=== PATIENT | male | born 2000 | race Two or more races ===

== ENCOUNTER 2025-03-26 12:46 | Inpatient (IN) | payer MEDICARE, MEDICAID ==
[~2025-03-26] VITALS: Ht 170.2 cm; Wt 93.9 kg
--- NOTE | 2025-03-26 13:01 | ED.PDOC ---
History of Present Illness HPI Comments This is a 24 year old male CATALINOA presenting to the ED with chief complaint of generalized weakness. EMS reports that the patient had an argument with his family at home, leaving his house and calling 911 for assistance. Patient relays that he was found to be generally weak, but this could also be due to his h istory of cerebral palsy. Patient states that he wants social services specialist for assistance as he claims no one at home takes care of him. Patient denies any N/V/D, abdominal pain, chest pain, SOB, fever, or chills. Time Seen by MD: 12:59 Primary Care Provider: SOREN Reviewed Notes: Nurses Notes, Flarer Notes, Medications, Allergies Allergies: Coded Allergies: NO KNOWN ALLERGIES (Unverified , 05/29/12) Information Source: Patient, Emergency Med Personnel Mode of Arrival: EMS Severity: Mild Timing: Hours Duration: Since onset Prehospital treatment: None Past Medical History PAST MEDICAL HISTORY: Seizures Past Medical History (Other): Cerebral palsy, autoimmune disorder Surgical History: Denies all surgeries Family History Family History: Reviewed,noncontributory to illness, Unknown Social History Smoker: Non-Smoker Alcohol: Denies ETOH Use Drugs: Denies Drug Use Lives In: Home Constitutional: reports: weakness; denies: chills, diaphoresis, fatigue, fever, malaise, sweats, others EENTM: denies: blurred vision, double vision, ear bleeding, ear discharge, ear drainage, ear pain, ear ringing, eye pain, eye redness, hearing loss, mouth pain, mouth swelling, nasal discharge, nose bleeding, nose congestion, nose pain, photophobia, tearing, throat pain, throat swelling, voice changes, others Respiratory: denies: cough, hemoptysis, orthopnea, SOB at rest, shortness of breath, SOB with excertion, stridor, wheezing, others Cardiovascular: denies: chest pain, dizzy spells, diaphoresis, Dyspnea on exertion, edema, irregular heart beat, left arm pain, lightheadedness, palpitations, PND, syncope, others Gastrointestinal: denies: abdomen distended, abdominal pain, blood streaked bowels, constipated, diarrhea, dysphagia, difficulty swallowing, hematemesis, melena, nausea, poor appetite, poor fluid intake, rectal bleeding, rectal pain, vomiting, others Genitourinary: denies: burning, dysuria, flank pain, frequency, hematuria, incontinence, penile discharge, penile sore, pain, testicle pain, testicle swelling, urgency, others Neurological: denies: dizziness, fainting, headache, left sided numbness, left sided weakness, numbness, paresthesia, pre-existing deficit, right sided numbnes s, right sided weakness, seizure, speech problems, tingling, tremors, weakness, others Musculoskeletal: denies: back pain, gout, joint pain, joint swelling, muscle pain, muscle stiffness, neck pain, others Integumetry: denies: bruises, change in color, change in hair/nails, dryness, laceration, lesions, lumps, rash, wounds, others Allergic/Immunocompromised: denies: Difficulty Healing, Frequent Infections, Hives, Itching, others Hematologic/Lymphatic: denies: anemia, blood clots, easy bleeding, easy bruising, swollen glands, others Endocrine: denies: excessive hunger, excessive sweating, excessive thirst, excessive urination, flushing, intolerance to cold, intolerance to heat, unexplained weight gain, unexplained weight loss, others Psychiatric: denies: anxiety, bipolar disorder, depression, hopeless, panic disorder, schizophrenia, sleepless, suicidal, others All Other Systems: Reviewed and Negative Physical Exam General Appearance: Moderate Distress, Normal HEENT: Normal ENT Inspection, Pharynx Normal, TMs Normal Neck: Full Range of Motion, Non-Tender, Normal, Normal Inspection Respiratory: Chest Non-Tender, Lungs Clear, No Accessory Muscle Use, No Respiratory Distress, Normal Breath Sounds Cardiovascular: No Edema, No JVD, No Murmur, No Gallop, Normal Peripheral Pulses, Regular Rate/Rhythm Breast Exam: Deferred Gastrointestinal: No Organomegaly, Non Tender, No Pulsatile Mass, Normal Bowel Sounds, Soft Genitalia: Deferred Pelvic: Deferred Rectal: Deferred Extremities: No calf tenderness, Normal capillary refill, Normal inspection, Normal range of motion, Non-tender, No pedal edema Musculoskeletal : Apperance: Normal Neurologic: Alert, rails developer II-XII nml as Tested, No Motor Deficits, Normal Affect, Normal Mood, No Sensory Deficits Cerebellar Function: NOT DONE Reflexes: NOT DONE Skin: Dry, Normal Color, Warm Peripheral Pulses: 3+ Radial (R), 3+ Radial (L) Lymphatic: No Adenopathy Was a procedure done? Was a procedure done?: No Differential Dx Considerations may include: Anemia Electrolyte imbalance X-Ray, Labs, Meds, VS Patient alert. Came in because of generalized symptoms. No obvious injury. Vitals stable. History of cerebral palsy. His lower extremity not well developed. He does ambulate with the assistance. Establish intravenous access. Was given fluids. Explained to the patient. Continue monitoring. Time of 1ST Reevaluation: 13:58 Reevaluation 1ST: Unchanged Patient Education/Counseling: Diagnosis, Treatment Family Education/Counseling: No Family Present SEPSIS Sepsis Screen Physician Orders Complete Blood Count (03/26/25 13:10) Urinalysis (03/26/25 13:10) Basic Metabolic Panel (03/26/25 13:10) Sodium Chloride 0.9% (03/26/25 13:15) Sodium Chloride 0.9% (03/26/25 13:15) Departure 1 Departure Time of Disposition: 13:28 Impression: Primary Impression: Personality disorder Additional Impression: General weakness Disposition: ADMITTED INPATIENT Admit to: Med Surg Condition: Guarded Critical Care Note Critical Care Time?: No Stability Stability form required: No Heart Score Heart Score: Heart Score Response (Comments) Value History N/A 0 EKG N/A 0 Age N/A 0 Risk Factors N/A 0 Troponin N/A 0 Total 0 I personally scribed for JUANJOSE KEANE MD ([email or web address]) on 03/26/25 at 13:00. Electronically submitted by Ish Henson ([email or web address]). JUANJOSE KEANE MD Mar 26, 2025 13:00
[2025-03-26 13:52] LABS: Anion Gap 14 (5-15); Carbon Dioxide 24 mmol/L (20-31); Chloride 102 mmol/L (98-107); Potassium 3.6 mmol/L (3.5-5.1); Sodium 140 mmol/L (136-145)
[2025-03-26 13:53] LABS: Calcium 9.3 mg/dL (8.7-10.4)
[2025-03-26 13:58] LABS: BUN/Creatinine Ratio 25.6 (10.0-20.0); Blood Urea Nitrogen 20 mg/dL (9-23); Glucose 91 mg/dL (74-106); Hematocrit 50.7 % (41.0-53.0); Hemoglobin 17.3 g/dL (13.5-17.5); Mean Corpuscular Hemoglobin 27.4 pg (28.0-32.0); Mean Corpuscular Volume 80.6 fL (80.0-100.0); Nucleated Red Blood Cells % 0.0 %
[2025-03-26] MEDS: SODIUM CHLORIDE 0.9% 1,000 ML IV ONE ×2 (15:08→15:09)
[2025-03-26] MEDS ORDERED: ONDANSETRON HCL 4 MG/2 ML VIAL IV PRN (21:15)
--- NOTE | 2025-03-26 21:47 | DVH ---
EXAM: CT HEAD WITHOUT CONTRAST INDICATION: Generalized weakness TECHNIQUE: CT of the head without intravenous contrast. Radiation Dose : 1. Head: CT Dose: CTDI volume is 66.93 mGy. Dose-length product is 1318.59 mGy*cm The dose indicators for CT are the volume Computed Tomography (CT) Dose Index (CTDIvol) and the Dose Length Product (DLP), and are measured in units of mGy and mGy-cm, respectively. These indicators are not patient dose, but values generated from the CT scanner acquisition factors. The report includes radiation exposure data for exposures received during this examination. COMPARISON: None FINDINGS: The cerebral parenchyma appears to be normal configuration and attenuation. The ventricles, cisterns , and sulci appear age-appropriate. There is no evidence for acute territorial infarct, hemorrhage, or mass effect. The orbits are normal. Polyp versus retention cyst within the right maxillary antrum. The visualized paranasal sinuses and mastoid air cells are otherwise clear. The soft tissues and osseous structure s appear within normal limits. IMPRESSION: 1. No acute territorial infarct, intracranial hemorrhage, or mass effect. If clinical symptoms persis t, MRI may be beneficial in further evaluation. Radiation optimization: All CT scans at this facility use at least one of these dose optimization colten hniques: automated exposure control mA and/or kV adjustment per patient size (includes targeted exam s where dose is matched to clinical indication) or iterative reconstruction.
[2025-03-26] MEDS ORDERED: NITROGLYCERIN 0.4 MG SL TAB SL PRN (22:30)
[2025-03-26] MEDS ORDERED: MORPHINE SULFATE INJ 2 MG/ml SYRG IV PRN (22:30)
--- NOTE | 2025-03-26 22:31 | DVHHP2 ---
History of Present Illness Reason for Visit: Generalized weakness History of Present Illness The patient is a 24-year-old male with past medical history of autoimmune disorder, cerebral palsy, and seizure who presented to [facility] ED with complaint of generalized weakness. Patient reports that he had an argument with his family at home, leaving his house and calling 911 for assistance. Patient states that he was found to be generally weak, but this could also be due to his history of cerebral palsy. Patient requesting for professor of social work for assistance as he claims no one at home takes care of him. Patient was seen and evaluated in the ED, laboratory data shows WBC 17.9, platelets 274, sodium 140, potassium 3.6, BUN 20, creatinine 0.78, GFR 129, glucose 91, calcium 9.3, blood pressure 163/78, heart rate 125, temperature 95 F, O2 saturation 94% on room air. Head CT showed no acute territorial infarct, intracranial hemorrhage, or mass effect. Please see medication orders section in the computer. On my assessment, patient denied chest pain, no headache, dizziness, diaphoresis, shortness of breaths, no abdominal pain, diarrhea, nausea, vomiting, fever, chills. Patient was admitted further evaluation and medical management. Past Medical History Seizures, Cerebral palsy, Autoimmune disorder Past Surgical History Denies all surgeries Family History Reviewed, noncontributory to the management of this case. Past Social History The patient lives at home, denies smoking, alcohol or illicit drugs abuse. Review of Systems Constitutional: Yes: Weakness; No: Fever, Chills, Sweats, Malaise, Other Eyes: No: Pain, Vision change, Conjunctivae inflammation, Eyelid inflammation, Other, Redness ENT: No: Ear pain, Ear discharge, Nose pain, Nose discharge, Nose congestion, Mouth pain, Mouth swelling, Throat pain, Throat swelling, Other Respiratory: No: Cough, Dry, Shortness of breath, SOB with excertion, Wheezing, Hemoptysis, Pleuritic Pain, Sputum, Wheezing, Other Cardiovascular: No: Chest Pain, Palpitations, Orthopnea, Paroxysmal Noc. Dyspnea, Edema, Lt Headedness, Other Gastrointestinal: No: Nausea, Vomiting, Abdominal Pain, Diarrhea, Constipation, Melena, Hematochezia, Other Genitourinary: No Dysuria, No Frequency, No Incontinence, No Hematuria, No Retention, No Other Musculoskeletal: other (Lower extremity weakness); No: neck pain, shoulder pain, arm pain, back pain, hand pain, leg pain, foot pain Skin: No: Rash, Lesions, Jaundice, Bruising, Other Neurological: No: Weakness, Numbness, Incoordination, Change in speech, Confusion, Seizures, Other Allergies: Coded Allergies: NO KNOWN ALLERGIES (Unverified , 05/29/12) Medications Current Medications Medications Dose Ordered Sig/Luis Route Start Time Stop Time Status Last Admin Dose Admin Ceftriaxone Sodium 50 ml @ 100 mls/hr DAILY@09 IV 03/27/25 09:00 Lorazepam 0.5 mg Q8HP PRN IV 03/26/25 21:15 Clonidine HCl 0.1 mg Q4HP PRN PO 03/26/25 21:15 Metoprolol Tartrate 25 mg BID PO 03/26/25 22:00 Sodium Chloride 10 ml Q8HR IV 03/26/25 22:00 Acetaminophen/ Hydrocodone Bitart 1 tab Q4HP PRN PO 03/26/25 21:15 Ondansetron HCl 4 mg Q4HP PRN IV 03/26/25 21:15 Docusate Sodium 100 mg BIDPRN PRN PO 03/26/25 21:15 Acetaminophen 650 mg Q6HP PRN PO 03/26/25 21:15 Exam Vital Signs Vital Signs Date Time Temp Pulse Resp B/P (MAP) Pulse Ox O2 Delivery O2 Flow Rate FiO2 03/26/25 12:51 90.9 125 18 163/78 92 90.9 General Appearance: Alert, Oriented X3, Cooperative, No acute distress HEENT: Atraumatic, PERRLA, EOMI, Mucous membr. moist/pink Respiratory: Normal air movement Cardiovascular: Regular rate, Normal S1, Normal S2, No murmurs Abdominal: Normal bowel sounds, Soft, No tenderness, No hepatospenomegaly, No masses Extremities: No clubbing, No cyanosis, No edema, Normal pulses, No tenderness/swelling Skin: No rashes, No breakdown, No significant lesion Neuro: Normal speech, Normal tone, Sensation intact, Reflexes 2+, Other (Generalized weakness) Psych/Mental Status: Mental status NL, Mood NL Labs/Xrays Labs Test 03/26/25 13:26 Range/Units White Blood Count 17.9 H 4.4-10.8 10^3/uL Red Blood Count 6.29 H 4.5-5.90 10^6/uL Hemoglobin 17.3 13.5-17.5 g/dL Hematocrit 50.7 41.0-53.0 % Mean Corpuscular Volume 80.6 80.0-100.0 fL Mean Corpuscular Hemoglobin 27.4 L 28.0-32.0 pg Mean Corpuscular Hemoglobin Concent 34.0 32.0-36.0 g/dL Red Cell Distribution Width 14.3 11.8-14.3 % Platelet Count 374 140-450 10^3/uL Mean Platelet Volume 7.9 6.9-10.8 fL Neutrophils (%) (Auto) 76.1 37.0-80.0 % Lymphocytes (%) (Auto) 14.0 10.0-50.0 % Monocytes (%) (Auto) 9.7 0.0-12.0 % Eosinophils (%) (Auto) 0.1 0.0-7.0 % Basophils (%) (Auto) 0.1 0.0-2.0 % Neutrophils # (Auto) 13.7 H 1.6-8.6 10 ^3/uL Lymphocytes # (Auto) 2.5 0.4-5.4 10 ^3/uL Monocytes # (Auto) 1.7 H 0-1.3 10 ^3/uL Eosinophils # (Auto) 0 0-0.8 10 ^3/uL Basophils # (Auto) 0 0-0.2 10 ^3/uL Nucleated Red Blood Cells 0.0 % Sodium Level 140 136-145 mmol/L Potassium Level 3.6 3.5-5.1 mmol/L Chloride Level 102 98-107 mmol/L Carbon Dioxide Level 24 20-31 mmol/L Anion Gap 14 5-15 Blood Urea Nitrogen 20 9-23 mg/dL Creatinine 0.78 0.700-1.30 mg/dL Glomerular Filtration Rate Calc 129 >90 mL/min BUN/Creatinine Ratio 25.6 H 10.0-20.0 Serum Glucose 91 74-106 mg/dL Calcium Level 9.3 8.7-10.4 mg/dL PATIENT: CAITY BOYD ACCT: [id number] UNIT: [id number] : 2000 LOC: ER ROOM / BED: / AGE / SEX: 24 / M ADM STATUS: REG ER SERVICE 08 ORDERING PHYSICIAN: JAKUB HORVATH DNP PROCEDURE(s): HWOCT - HEAD WITHOUT CONTRAST REASON: Generalized weakness ORDER NUMBER(s): [id number], ACCESSION NUMBER(s): [id number] EXAM: CT HEAD WITHOUT CONTRAST INDICATION: Generalized weakness TECHNIQUE: CT of the head without intravenous contrast. Radiation Dose: 1. Head: CT Dose: CTDI volume is 66.93 mGy. Dose-length product is 1318.59 mGy*cm The dose indicators for CT are the volume Computed Tomography (CT) Dose Index (CTDIvol) and the Dose Length Product (DLP), and are measured in units of mGy and mGy-cm, respectively. These indicators are not patient dose, but values generated from the CT scanner acquisition factors. The report includes radiation exposure data for exposures received during this examination. COMPARISON: None FINDINGS: The cerebral parenchyma appears to be normal configuration and attenuation. The ventricles, cisterns, and sulci appear age-appropriate. There is no evidence for acute territorial infarct, hemorrhage, or mass effect. The orbits are normal. Polyp versus retention cyst within the right maxillary antrum. The visualized paranasal sinuses and mastoid air cells are otherwise clear. The soft tissues and osseous structures appear within normal limits. IMPRESSION: 1. No acute territorial infarct, intracranial hemorrhage, or mass effect. If clinical symptoms persist, MRI may be beneficial in further evaluation. Radiation optimization: All CT scans at this facility use at least one of these dose optimization techniques: automated exposure control mA and/or kV adjustment per patient size (includes targeted exams where dose is matched to clinical indication) or iterative reconstruction. SEPSIS Sepsis Screen Date sepsis recognized/suspect: Mar 26, 2025 Time Sepsis recognized/suspect: 1251 Recent Procedure: No On Antibiotic Therapy: No Respiratory Rate >20: No Heart Rate >90: Yes Temp<36 C (96.8 F) or >38.3 C: No SBP <90 or MAP <65 mmHG: No New Acute Mental Status Change: No Is the patient on CPAP, BIPAP,: No Physician Orders Head Without Contrast (03/26/25 21:09) Blood Culture (03/26/25 21:09) Ceftriaxone 1gm/50ml (Rocephin) (03/27/25 09:00) Lorazepam 2mg/Ml Inj (Ativan Inj) (03/26/25 21:15) Clonidine Hcl Tablet (Catapres Tablet) (03/26/25 21:15) Metoprolol Tartrate Tablet (Lopressor Ta (03/26/25 22:00) Allergies (03/26/25 21:09) Code Status (03/26/25 21:09) Sodium Chloride Lock (Saline Lock Ns) (03/26/25 22:00) Oxygen Per Hour (03/26/25 21:09) Hydrocodone-Acet 5/325mg Tab ([place] 5/32 (03/26/25 21:15) Ondansetron Hcl (Zofran) (03/26/25 21:15) Docusate Sodium Capsule (Colace Capsule) (03/26/25 21:15) Fall Risk Precautions In Place QSHIFT (03/26/25 21:09) Complete Blood Count (03/27/25 04:00) Comprehensive Metabolic Panel (03/27/25 04:00) Cardiac Diet-2gna,Lofat,Lochol (03/27/25 Breakfast) Condition: Serious (03/26/25 21:09) Acetaminophen Tablet (Tylenol Tablet) (03/26/25 21:15) Maintain Bed Rest (03/26/25 21:09) Sequential Compression Device (03/26/25 ) Laboratory Tests Test 03/26/25 13:26 White Blood Count 17.9 10^3/uL (4.4-10.8) H Medications Medications Dose Ordered Sig/Luis Route Start Time Stop Time Status Last Admin Dose Admin Sodium Chloride 1,000 ml @ 150 mls/hr Q6H40M ONCE IV 03/26/25 13:15 03/26/25 19:54 DC 03/26/25 15:09 150 MLS/HR Sodium Chloride 1,000 ml @ 1,000 mls/hr Q1H ONCE IV 03/26/25 13:15 03/26/25 14:14 DC 03/26/25 15:08 1,000 MLS/HR Assessment/Plan Assessment/Plan Generalized weakness Personality disorder Leukocytosis, unspecified Plan 1. Admit to med surge unit 2. Breathing treatment 3. Pain control management 4. IV antibiotic management 5. Management of fluids and electrolytes 6. Consultation for social service/hospitalist 7. Diagnostic test head CT 8. DVT prophylaxis on SCDs 9. Repeat labs CBC, CMP in a.m. 10. Home medication reviewed and reconciled 11. Continue with current medical management 12. Treatment plan discussed with patient and RN. Patient verbalized understanding. Plan discussed with: Patient, Other (RN) My Orders Orders - JAKUB HORVATH DNP Procedure Category Date Status Time Head Without Contrast CT 03/26/25 Resulted 21:09 Blood Culture MARILEE 03/26/25 In Process 21:09 Ceftriaxone 1gm/50ml PHA 03/27/25 In Process (Rocephin) 09:00 Lorazepam 2mg/Ml Inj PHA 03/26/25 In Process (Ativan Inj) 21:15 Clonidine Hcl Tablet PHA 03/26/25 In Process (Catapres Tablet) 21:15 Metoprolol Tartrate PHA 03/26/25 In Process Tablet (Lopressor Ta 22:00 Allergies ELI 03/26/25 In Process 21:09 Code Status CODE 03/26/25 Transmitted 21:09 Sodium Chloride Lock PHA 03/26/25 In Process (Saline Lock Ns) 22:00 Oxygen Per Hour RT 03/26/25 Transmitted 21:09 Hydrocodone-Acet PHA 03/26/25 In Process 5/325mg Tab ([place] 21:15 Ondansetron Hcl PHA 03/26/25 In Process (Zofran) 21:15 Docusate Sodium PHA 03/26/25 In Process Capsule (Colace 21:15 Fall Risk Precautions ELI 03/26/[address] 21:09 Complete Blood Count LAB 03/27/25 Verified 04:00 Comprehensive LAB 03/27/25 Verified Metabolic Panel 04:00 Cardiac DIET 03/27/25 Transmitted Diet-2gna,Lofat,Lochol Breakfast Condition: Serious ELI 03/26/25 In Process 21:09 Acetaminophen Tablet PHA 03/26/25 In Process (Tylenol Tablet) 21:15 Maintain Bed Rest ELI 03/26/25 In Process 21:09 Sequential ELI 03/26/25 In Process Compression Device Problem List: (1) Generalized weakness (2) Personality disorder (3) Leukocytosis, unspecified Date of Service: Mar 26, 2025 Billing Provider: JAKUB HORVATH DNP Common Visit Codes: [id number] INP/OBS CARE (HIGH) JAKUB HORVATH DNP Mar 26, 2025 22:31
[2025-03-27] MEDS: SODIUM CHLORIDE 0.9% 1,000 ML IV ONE
[2025-03-27] MEDS: SODIUM CHLOR 0.9% PF (SALINE LOCK) 10ML VIAL/SYR IV SCH (00:18)
[2025-03-27] MEDS: METOPROLOL TARTRATE 25 MG TAB PO SCH (00:19)
[2025-03-27] MEDS: ACETAMINOPHEN 325 MG TAB PO PRN (00:41)
[2025-03-27] MEDS: LORazepam 2MG/ML-1ML VIAL IV PRN (00:41)
[2025-03-27 05:22] LABS: Nucleated Red Blood Cells % 0.1 %
[2025-03-27 05:23] LABS: Hematocrit 47.0 % (41.0-53.0); Hemoglobin 15.8 g/dL (13.5-17.5); Mean Corpuscular Hemoglobin 27.5 pg (28.0-32.0); Mean Corpuscular Volume 81.8 fL (80.0-100.0)
[2025-03-27 05:43] LABS: Alanine Aminotransferase 24 U/L (7-40); Alkaline Phosphatase 104 U/L (46-116); Anion Gap 11 (5-15); BUN/Creatinine Ratio 25.0 (10.0-20.0); Blood Urea Nitrogen 18 mg/dL (9-23); Carbon Dioxide 25 mmol/L (20-31); Chloride 105 mmol/L (98-107); Potassium 3.6 mmol/L (3.5-5.1); Sodium 141 mmol/L (136-145); Total Protein 6.8 g/dL (5.7-8.2)
[2025-03-27 05:44] LABS: Albumin 4.0 g/dL (3.2-4.8); Bilirubin, Total 0.7 mg/dL (0.2-1.0); Calcium 8.7 mg/dL (8.7-10.4); Glucose 120 mg/dL (74-106)
[2025-03-27 07:45] VITALS: PULSE 88; RESP 11; O2SAT 98
[2025-03-27 10:44] LABS: Urine Protein, UAD TRACE (Negative)
[2025-03-27 15:44] VITALS: BP 133/70; PULSE 77; RESP 20; TEMP 99; O2SAT 94
--- NOTE | 2025-03-27 16:34 | DVHPN2 ---
Subjective Patient is here for generalized weakness. Changes from previous H/P or p: No Changes Eyes: No Pain, No Vision change, No Conjunctivae inflammation, No Eyelid inflammation, No Other, No Redness ENT: No Ear pain, No Ear discharge, No Nose pain, No Nose discharge, No Nose congestion, No Mouth pain, No Mouth swelling, No Throat pain, No Throat swelling, No Other Cardiovascular: No Chest Pain, No Palpitations, No Orthopnea, No Paroxysmal Noc. Dyspnea, No Edema, No Lt Headedness, No Other Respiratory: No Cough, No Dry, No Shortness of breath, No SOB with excertion, No Wheezing, No Hemoptysis, No Pleuritic Pain, No Sputum, No Other Gastrointestinal: No Nausea, No Vomiting, No Abdominal Pain, No Diarrhea, No Constipation, No Melena, No Hematochezia, No Other Genitourinary: No Dysuria, No Frequency, No Incontinence, No Hematuria, No Retention, No Other Musculoskeletal: other (Lower extremity weakness); No neck pain, No shoulder pain, No arm pain, No back pain, No hand pain, No leg pain, No foot pain Skin: No Rash, No Lesions, No Jaundice, No Bruising, No Other Objective Vitals Vital Signs Date Time Temp Pulse Resp B/P (MAP) Pulse Ox O2 Delivery O2 Flow Rate FiO2 03/27/25 15:44 99.0 77 20 133/70 (91) 94 99.0 03/27/25 07:45 Room Air* 0 21 Intake/Output Intake and Output 03/27/25 07:00 Intake Total 1050 ml Balance 1050 ml Intake IV Total 1050 ml Medications Current Medications Medications Dose Ordered Sig/Luis Route Start Time Stop Time Status Last Admin Dose Admin Ceftriaxone Sodium 50 ml @ 100 mls/hr DAILY@09 IV 03/27/25 09:00 03/27/25 09:12 100 MLS/HR Lorazepam 0.5 mg Q8HP PRN IV 03/26/25 21:15 03/27/25 00:41 0.5 MG Clonidine HCl 0.1 mg Q4HP PRN PO 03/26/25 21:15 Metoprolol Tartrate 25 mg BID PO 03/26/25 22:00 03/27/25 10:19 25 MG Acetaminophen/ Hydrocodone Bitart 1 tab Q4HP PRN PO 03/26/25 21:15 Ondansetron HCl 4 mg Q4HP PRN IV 03/26/25 21:15 Docusate Sodium 100 mg BIDPRN PRN PO 03/26/25 21:15 Acetaminophen 650 mg Q6HP PRN PO 03/26/25 21:15 03/27/25 00:41 650 MG Quetiapine Fumarate 50 mg BID PO 03/27/25 10:00 03/27/25 10:19 50 MG Nitroglycerin 0.4 mg Q5MINP PRN SL 03/26/25 22:30 Morphine Sulfate 2 mg Q30M PRN IV 03/26/25 22:30 Laboratory Results Laboratory Tests 03/27/25 04:44 Chemistry Test 03/27/25 04:44 Albumin 4.0 g/dL (3.2-4.8) Calcium Level 8.7 mg/dL (8.7-10.4) Total Protein 6.8 g/dL (5.7-8.2) LFT Test 03/27/25 04:44 Alanine Aminotransferase (ALT) 24 U/L (7-40) Alkaline Phosphatase 104 U/L (46-116) Aspartate Amino Transferase (AST) 20 U/L (13-40) Total Bilirubin 0.7 mg/dL (0.2-1.0) Urinalysis Test 03/27/25 10:23 Urine Color Yellow (Yellow) Urine Clarity Clear (Clear) Urine pH 6.0 (5.0-9.0) Urine Specific [place] 1.032 (1.001-1.035) Urine Protein Trace (Negative) H Urine Ketones Negative (Negative) Urine Blood Negative /uL (Negative) Urine Nitrite Negative (Negative) Urine Bilirubin Negative (Negative) Urine Urobilinogen Normal mg/dL (Negative) Urine Leukocyte Esterase Negative /uL (Negative) Urine RBC 2 /hpf (0 - 3) Urine Microscopic WBC 1 /HPF (0-3) Urine Squamous Epithelial Cells Few /hpf (<5) Urine Bacteria Few /hpf (None Seen) H Urine Mucus Few (None Seen) Urine Glucose Normal mg/dL (Normal) Assessment/Plan Assessment/Plan 24-year-old male with known history of cerebral palsy, seizure disorder, some chiropractic artery disorder is a here for general weakness. 1. generalized weakness 2. Cerebral palsy 3. Seizure disorder 4. Leukocytosis -physical therapy evaluation and treatment, continue current medication, discharge plan Plan discussed with: Patient Date of Service: Mar 27, 2025 Billing Provider: NELIDA TALBOT MD Common Visit Codes: [id number] INP/OBS CARE(HIGH) NELIDA TALBOT MD Mar 27, 2025 16:34
[2025-03-27 16:36] VITALS: BP 133/70; PULSE 77; RESP 20; TEMP 99; O2SAT 94
[2025-03-27 17:38] VITALS: BP 153/80; PULSE 101; RESP 20; TEMP 98.1; O2SAT 95
[2025-03-27 20:00] VITALS: PULSE 116; RESP 18; O2SAT 95
[2025-03-27 21:14] VITALS: BP 142/90; PULSE 116; RESP 18; TEMP 98.3; O2SAT 95
[2025-03-27] MEDS: MELATONIN 5 MG TAB PO ONE (22:16)
[2025-03-27] MEDS: HYDROcodone-ACET 5/325MG TAB PO PRN (22:17)
[2025-03-28] VITALS (7 sets, daily range): BP systolic 117–157; BP diastolic 57–97; PULSE 62–116; RESP 17–20; TEMP 97.5–98.3; O2SAT 94–97
[2025-03-28] MEDS: DOCUSATE SOD 100 MG CAP PO PRN (10:06)
--- NOTE | 2025-03-28 16:13 | DVHINCON2 ---
Date of Service if different f: Mar 28, 2025 Consultation ([facility]) Consulting Physician: EMILY LYLE MD Progress: Somewhat better Labs Laboratory Tests Test 03/27/25 04:44 03/27/25 10:23 White Blood Count 11.8 10^3/uL (4.4-10.8) Red Blood Count 5.75 10^6/uL (4.5-5.90) Hemoglobin 15.8 g/dL (13.5-17.5) Hematocrit 47.0 % (41.0-53.0) Mean Corpuscular Volume 81.8 fL (80.0-100.0) Mean Corpuscular Hemoglobin 27.5 pg (28.0-32.0) Mean Corpuscular Hemoglobin Concent 33.7 g/dL (32.0-36.0) Red Cell Distribution Width 14.5 % (11.8-14.3) Platelet Count 335 10^3/uL (140-450) Mean Platelet Volume 7.9 fL (6.9-10.8) Neutrophils (%) (Auto) 57.6 % (37.0-80.0) Lymphocytes (%) (Auto) 28.3 % (10.0-50.0) Monocytes (%) (Auto) 11.6 % (0.0-12.0) Eosinophils (%) (Auto) 2.4 % (0.0-7.0) Basophils (%) (Auto) 0.1 % (0.0-2.0) Neutrophils # (Auto) 6.8 10 ^3/uL (1.6-8.6) Lymphocytes # (Auto) 3.3 10 ^3/uL (0.4-5.4) Monocytes # (Auto) 1.4 10 ^3/uL (0-1.3) Eosinophils # (Auto) 0.3 10 ^3/uL (0-0.8) Basophils # (Auto) 0 10 ^3/uL (0-0.2) Nucleated Red Blood Cells 0.1 % Sodium Level 141 mmol/L (136-145) Potassium Level 3.6 mmol/L (3.5-5.1) Chloride Level 105 mmol/L (98-107) Carbon Dioxide Level 25 mmol/L (20-31) Anion Gap 11 (5-15) Blood Urea Nitrogen 18 mg/dL (9-23) Creatinine 0.72 mg/dL (0.700-1.30) Glomerular Filtration Rate Calc 132 mL/min (>90) BUN/Creatinine Ratio 25.0 (10.0-20.0) Serum Glucose 120 mg/dL (74-106) Calcium Level 8.7 mg/dL (8.7-10.4) Total Bilirubin 0.7 mg/dL (0.2-1.0) Aspartate Amino Transf (AST/SGOT) 20 U/L (13-40) Alanine Aminotransferase (ALT/SGPT) 24 U/L (7-40) Alkaline Phosphatase 104 U/L (46-116) Total Protein 6.8 g/dL (5.7-8.2) Albumin 4.0 g/dL (3.2-4.8) Urine Color Yellow (Yellow) Urine Clarity Clear (Clear) Urine pH 6.0 (5.0-9.0) Urine Specific [place] 1.032 (1.001-1.035) Urine Protein Trace (Negative) Urine Ketones Negative (Negative) Urine Blood Negative /uL (Negative) Urine Nitrite Negative (Negative) Urine Bilirubin Negative (Negative) Urine Urobilinogen Normal mg/dL (Negative) Urine Leukocyte Esterase Negative /uL (Negative) Urine RBC 2 /hpf (0 - 3) Urine Microscopic WBC 1 /HPF (0-3) Urine Squamous Epithelial Cells Few /hpf (<5) Urine Bacteria Few /hpf (None Seen) Urine Mucus Few (None Seen) Urine Glucose Normal mg/dL (Normal) Microbiology Date/Time Source Procedure Growth Status 03/26/25 21:30 Blood Blood Culture - Preliminary NO GROWTH AFTER 24 HOURS OF INCUBATION. Resulted Appetite: Good Appearance: Stated age Psychomotor activity: WNL Behavioral: Cooperative Eye contact: Appropriate Speech: WNL Affect: Mood Congruent Mood: Depressed Thought processes: Linear/Goal-directed Thought content: WNL Suicidal ideations: Absent Homicidal ideations: Absent Orientation: Person, Place, Time, Situation Memory intact: Recent Intellect: Average Abstractability: Marginal Concentration: Adequate Attention: Adequate Judgement: Poor Insight: Limited Vitals Vital Signs Date Time Temp Pulse Resp B/P (MAP) Pulse Ox O2 Delivery O2 Flow Rate FiO2 03/28/25 09:48 94 153/87 03/28/25 08:05 Room Air* 0 21 03/28/25 05:03 97.8 18 95 97.8 Current medications Current Medications Medications Dose Ordered Sig/Luis Route Start Time Stop Time Status Last Admin Dose Admin Ceftriaxone Sodium 50 ml @ 100 mls/hr DAILY@09 IV 03/27/25 09:00 03/28/25 08:47 100 MLS/HR Lorazepam 0.5 mg Q8HP PRN IV 03/26/25 21:15 03/27/25 00:41 0.5 MG Clonidine HCl 0.1 mg Q4HP PRN PO 03/26/25 21:15 Metoprolol Tartrate 25 mg BID PO 03/26/25 22:00 03/28/25 08:48 25 MG Acetaminophen/ Hydrocodone Bitart 1 tab Q4HP PRN PO 03/26/25 21:15 03/27/25 22:17 1 TAB Ondansetron HCl 4 mg Q4HP PRN IV 03/26/25 21:15 Docusate Sodium 100 mg BIDPRN PRN PO 03/26/25 21:15 03/28/25 10:06 100 MG Acetaminophen 650 mg Q6HP PRN PO 03/26/25 21:15 03/27/25 00:41 650 MG Quetiapine Fumarate 50 mg BID PO 03/27/25 10:00 03/28/25 08:49 50 MG Nitroglycerin 0.4 mg Q5MINP PRN SL 03/26/25 22:30 Morphine Sulfate 2 mg Q30M PRN IV 03/26/25 22:30 Medication adjusted: Yes Labs ordered: No Psychotherapy provided: Yes Type: Voluntary Diagnosis: MDD S severe. Possible Complex partial seizures. Plan : Recommend starting the pt on Depakote DR 750 mg qhs and ER 500 mg Qam. (May give 250 mg morning and afternoon if too somnolent). The pt should get a trough level in 5 days. If not within range, dose needs to be adjusted. Once the depakote is at optimal dose, then Lexapro 10 mg to 20 mg can be added. Recommend stopping Seroquel. The pt seems to be having frequent non tonic clonic seizures that can appear to be episodes of psychosis. This can be d/t partial complex seizures and therefore the best 1st step would be to start depakote, optimize dose and then start a mood medicine like Lexapro to help with depression. Giving psych meds without antiseizure med like depakote on board may lead to tonic clonic seizures or persistence and escalation of complex partial seizures. If pt's mood symptoms get better in a few doses and pt is no longer making the suicidal statements to anyone, pt can discharge home with a diagnosis of Complex Partial seizures and neurology and psych follow-up. It pt remains persistently suicidal or has thoughts of hurting others by the end of Sunday, then a 5150 with transfer to inpatient psychiatry should be considered. History of Present Illness Reason for Consult : SI. HPI : Pt has been making suicidal statements to the nurses and family members since yesterday. Pt was texting father that he would stab him, chop his head off, and go and commit suicide. Pt has been texting on IG with his sister and making the same statements. The pt's father showed PEACE Gardner the text messages the pt was sending while in the hospital bed with the father by his bed side. The pt also told other nurses that he wanted to kill himself. Pt initially presented with gen weakness citing family not caring about him and walking out of the house after an argument, calling 911 and being brought to the hospital. Medical tests and seem to suggest to suggest that pt is medically at baseline. Pt says he has been having thoughts of suicide for about a year. They are inconsistent. Pt feels good right now b/c his friend came to visit. Pt says he wants to go back home and start his life back up again. Pt says he had a seizure before coming here. Pt says that he has instances of feeling instances of having strange, volatile, angry mood (more than it should be per circumstances) in these instances he would also experience AH and start having strange ideas bordering on delusions. These episodes would then automatically remit and pt would feel like his regular self. Pt feels like he has been having a lot of seizures this past year. Past Psychiatric History : Denies any psychiatric history. Past Medical History : Cerebral Palsy, Seizure disorder. Pt is not taking any meds for a seizure. Pt thinks he had a seizure 3 days ago before coming to the hospital. Hx of autoimmune encephalitis. Pt is taking Seroquel for psychosis and mood. Social History : Lives with family. Pt says they kicked him out 3 days ago b/c of money situation or something - pt's family is insisting that he keep taking Seroquel. Pt was using a lot of cannabis, mushrooms and alcohol. Pt was drinking 12 packs of beer but last time used was 2 weeks ago. Pt feels like his parents have been stealing money. Assessment/Diagnosis/Plan Reviewed: Consults, Care Plan, Labs, Medications, Other EMILY LYLE MD Mar 28, 2025 16:13
--- NOTE | 2025-03-28 18:06 | DVHPN2 ---
Subjective Patient is here for generalized weakness. Patient earlier had suicidal ideas, psychiatrist called me and he is drinking patient might have complex partial seizure recommended to be patient on Depakote. Changes from previous H/P or p: No Changes Eyes: No Pain, No Vision change, No Conjunctivae inflammation, No Eyelid inflammation, No Other, No Redness ENT: No Ear pain, No Ear discharge, No Nose pain, No Nose discharge, No Nose congestion, No Mouth pain, No Mouth swelling, No Throat pain, No Throat swelling, No Other Cardiovascular: No Chest Pain, No Palpitations, No Orthopnea, No Paroxysmal Noc. Dyspnea, No Edema, No Lt Headedness, No Other Respiratory: No Cough, No Dry, No Shortness of breath, No SOB with excertion, No Wheezing, No Hemoptysis, No Pleuritic Pain, No Sputum, No Other Gastrointestinal: No Nausea, No Vomiting, No Abdominal Pain, No Diarrhea, No Constipation, No Melena, No Hematochezia, No Other Genitourinary: No Dysuria, No Frequency, No Incontinence, No Hematuria, No Retention, No Other Musculoskeletal: other (Lower extremity weakness); No neck pain, No shoulder pain, No arm pain, No back pain, No hand pain, No leg pain, No foot pain Skin: No Rash, No Lesions, No Jaundice, No Bruising, No Other Objective Vitals Vital Signs Date Time Temp Pulse Resp B/P (MAP) Pulse Ox O2 Delivery O2 Flow Rate FiO2 03/28/25 17:00 98.1 105 20 148/91 (110) 96 98.1 03/28/25 08:05 Room Air* 0 21 Intake/Output Intake and Output 03/28/25 07:00 Intake Total 1500 ml Output Total 600 ml Balance 900 ml Intake Oral 1500 ml Output Urine Total 600 ml # Bowel Movements 1 Exam HEENT pupils are reactive Neck is supple CV is S1-S2 regular rate and rhythm Respiratory bilateral clear GI positive bowel sound Extremity no edema 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 Medications Current Medications Medications Dose Ordered Sig/Luis Route Start Time Stop Time Status Last Admin Dose Admin Ceftriaxone Sodium 50 ml @ 100 mls/hr DAILY@09 IV 03/27/25 09:00 03/28/25 08:47 100 MLS/HR Lorazepam 0.5 mg Q8HP PRN IV 03/26/25 21:15 03/27/25 00:41 0.5 MG Clonidine HCl 0.1 mg Q4HP PRN PO 03/26/25 21:15 Metoprolol Tartrate 25 mg BID PO 03/26/25 22:00 03/28/25 08:48 25 MG Acetaminophen/ Hydrocodone Bitart 1 tab Q4HP PRN PO 03/26/25 21:15 03/27/25 22:17 1 TAB Ondansetron HCl 4 mg Q4HP PRN IV 03/26/25 21:15 Docusate Sodium 100 mg BIDPRN PRN PO 03/26/25 21:15 03/28/25 10:06 100 MG Acetaminophen 650 mg Q6HP PRN PO 03/26/25 21:15 03/27/25 00:41 650 MG Quetiapine Fumarate 50 mg BID PO 03/27/25 10:00 03/28/25 08:49 50 MG Nitroglycerin 0.4 mg Q5MINP PRN SL 03/26/25 22:30 Morphine Sulfate 2 mg Q30M PRN IV 03/26/25 22:30 Divalproex Sodium 500 mg QAM PO 03/29/25 07:00 Divalproex Sodium 750 mg QPM PO 03/28/25 18:00 Laboratory Results Laboratory Tests 03/27/25 04:44 Urinalysis Test 03/27/25 10:23 Urine Color Yellow (Yellow) Urine Clarity Clear (Clear) Urine pH 6.0 (5.0-9.0) Urine Specific [place] 1.032 (1.001-1.035) Urine Protein Trace (Negative) H Urine Ketones Negative (Negative) Urine Blood Negative /uL (Negative) Urine Nitrite Negative (Negative) Urine Bilirubin Negative (Negative) Urine Urobilinogen Normal mg/dL (Negative) Urine Leukocyte Esterase Negative /uL (Negative) Urine RBC 2 /hpf (0 - 3) Urine Microscopic WBC 1 /HPF (0-3) Urine Squamous Epithelial Cells Few /hpf (<5) Urine Bacteria Few /hpf (None Seen) H Urine Mucus Few (None Seen) Urine Glucose Normal mg/dL (Normal) Microbiology Microbiology Date/Time Source Procedure Growth Status 03/26/25 21:30 Blood Blood Culture - Preliminary NO GROWTH AFTER 24 HOURS OF INCUBATION. Resulted Assessment/Plan Assessment/Plan 24-year-old male with known history of cerebral palsy, seizure disorder, some psychiatric disorder is here for. 1. generalized weakness 2. Cerebral palsy 3. Seizure disorder suspect complex partial seizure disorder as per Psychiatry 4. Leukocytosis -Depakote as recommended by Psychiatry, hold off for any inpatient psych transfer to psych facility for now, Neurology consultation -physical therapy evaluation and treatment, continue current medication. Plan discussed with: Patient My Orders Orders - NELIDA TALBOT MD Procedure Category Date Status Time Soc Telemed Psych CONS 03/28/25 Transmitted Consult 11:25 Sitter 1:1 ORDERS 03/28/25 Transmitted 11:[address] Tablet PHA 03/29/25 In Process (Depakote "" Tabl 07:[address] Tablet PHA 03/28/25 In Process (Depakote "" Tabl 18:00 Date of Service: Mar 28, 2025 Billing Provider: NELIDA TALBOT MD Common Visit Codes: [id number] INP/OBS CARE(HIGH) NELIDA TALBOT MD Mar 28, 2025 18:06
[2025-03-29] VITALS (8 sets, daily range): BP systolic 113–158; BP diastolic 68–93; PULSE 62–119; RESP 16–18; TEMP 97.9–98.9; O2SAT 98–100
--- NOTE | 2025-03-29 16:05 | DVHPN2 ---
Subjective Patient currently denies any complaints denies any suicidal ideas or thoughts. Changes from previous H/P or p: No Changes Eyes: No Pain, No Vision change, No Conjunctivae inflammation, No Eyelid inflammation, No Other, No Redness ENT: No Ear pain, No Ear discharge, No Nose pain, No Nose discharge, No Nose congestion, No Mouth pain, No Mouth swelling, No Throat pain, No Throat swelling, No Other Cardiovascular: No Chest Pain, No Palpitations, No Orthopnea, No Paroxysmal Noc. Dyspnea, No Edema, No Lt Headedness, No Other Respiratory: No Cough, No Dry, No Shortness of breath, No SOB with excertion, No Wheezing, No Hemoptysis, No Pleuritic Pain, No Sputum, No Other Gastrointestinal: No Nausea, No Vomiting, No Abdominal Pain, No Diarrhea, No Constipation, No Melena, No Hematochezia, No Other Genitourinary: No Dysuria, No Frequency, No Incontinence, No Hematuria, No Retention, No Other Musculoskeletal: other (Lower extremity weakness); No neck pain, No shoulder pain, No arm pain, No back pain, No hand pain, No leg pain, No foot pain Skin: No Rash, No Lesions, No Jaundice, No Bruising, No Other Objective Vitals Vital Signs Date Time Temp Pulse Resp B/P (MAP) Pulse Ox O2 Delivery O2 Flow Rate FiO2 03/29/25 13:00 98.0 94 18 135/77 (96) 99 98.0 03/29/25 08:00 Room Air* 0 21 Intake/Output Intake and Output 03/29/25 07:00 Intake Total 395 ml Balance 395 ml Intake Oral 345 ml IV Total 50 ml Exam HEENT pupils are reactive Neck is supple CV is S1-S2 regular rate and rhythm Respiratory bilateral clear GI positive bowel sound Extremity no 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 Medications Current Medications Medications Dose Ordered Sig/Luis Route Start Time Stop Time Status Last Admin Dose Admin Ceftriaxone Sodium 50 ml @ 100 mls/hr DAILY@09 IV 03/27/25 09:00 03/29/25 09:05 100 MLS/HR Lorazepam 0.5 mg Q8HP PRN IV 03/26/25 21:15 03/27/25 00:41 0.5 MG Clonidine HCl 0.1 mg Q4HP PRN PO 03/26/25 21:15 Metoprolol Tartrate 25 mg BID PO 03/26/25 22:00 03/29/25 10:15 25 MG Acetaminophen/ Hydrocodone Bitart 1 tab Q4HP PRN PO 03/26/25 21:15 03/28/25 22:15 1 TAB Ondansetron HCl 4 mg Q4HP PRN IV 03/26/25 21:15 Docusate Sodium 100 mg BIDPRN PRN PO 03/26/25 21:15 03/28/25 10:06 100 MG Acetaminophen 650 mg Q6HP PRN PO 03/26/25 21:15 03/27/25 00:41 650 MG Quetiapine Fumarate 50 mg BID PO 03/27/25 10:00 03/29/25 10:14 50 MG Nitroglycerin 0.4 mg Q5MINP PRN SL 03/26/25 22:30 Morphine Sulfate 2 mg Q30M PRN IV 03/26/25 22:30 Divalproex Sodium 500 mg QAM PO 03/29/25 07:00 03/29/25 07:07 500 MG Divalproex Sodium 750 mg QPM PO 03/28/25 18:00 03/28/25 18:23 750 MG Laboratory Results Laboratory Tests 03/27/25 04:44 Urinalysis Test 03/27/25 10:23 Urine Color Yellow (Yellow) Urine Clarity Clear (Clear) Urine pH 6.0 (5.0-9.0) Urine Specific [place] 1.032 (1.001-1.035) Urine Protein Trace (Negative) H Urine Ketones Negative (Negative) Urine Blood Negative /uL (Negative) Urine Nitrite Negative (Negative) Urine Bilirubin Negative (Negative) Urine Urobilinogen Normal mg/dL (Negative) Urine Leukocyte Esterase Negative /uL (Negative) Urine RBC 2 /hpf (0 - 3) Urine Microscopic WBC 1 /HPF (0-3) Urine Squamous Epithelial Cells Few /hpf (<5) Urine Bacteria Few /hpf (None Seen) H Urine Mucus Few (None Seen) Urine Glucose Normal mg/dL (Normal) Microbiology Microbiology Date/Time Source Procedure Growth Status 03/26/25 21:30 Blood Blood Culture - Preliminary NO GROWTH AFTER 48 HOURS OF INCUBATION. Resulted Assessment/Plan Assessment/Plan 24-year-old male with known history of cerebral palsy, seizure disorder, some psychiatric disorder is here for. 1. Tonic-clonic seizures suspect episodes of psychosis with underlying complex partial seizures 2. Cerebral palsy 3. Seizure disorder suspect complex partial seizure disorder as per Psychiatry 4. Leukocytosis likely reactive next 5. Chronic alcoholism -Depakote as recommended by Psychiatry, hold off for any inpatient psych transfer to psych facility for now, Neurology consultation -physical therapy evaluation and treatment, continue current medication. Plan discussed with: Patient My Orders Orders - NELIDA TALBOT MD Procedure Category Date Status Time Divalproex Dr Tablet PHA 03/29/25 In Process (Depakote "" Tabl 07:[address] Tablet PHA 03/28/25 In Process (Depakote "Dr" Tabl 18:00 *Consult Dr. Sandi BROWN 03/29/25 Transmitted [place] 16:02 Date of Service: Mar 29, 2025 Billing Provider: NELIDA TALBOT MD Common Visit Codes: [id number] INP/OBS CARE(HIGH) NELIDA TALBOT MD Mar 29, 2025 16:05
[2025-03-30] VITALS (8 sets, daily range): BP systolic 124–145; BP diastolic 68–81; PULSE 89–101; RESP 17–18; TEMP 97.6–98.6; O2SAT 93–99
--- NOTE | 2025-03-30 09:11 | DVHINCON2 ---
Date of service: Mar 30, [address] Boucher Reason for Consultation Company partial seizure History of Present Illness Mr. Edwards is a 22 years old right-handed gentleman with a history of cerebral palsy, bipolar disorder, autoimmune disorder, obesity, he was admitted to the [facility] on 03/26/2025 with a chief complaint of general weakness. At that time, he is alert and fully oriented, he provided the following history He is kicked out by his parents on 03/26/2025, and when he is walking towards his friend's home, he had a fall and he decided to call 911 for help. He relates he also has a history of seizure disorder His seizure started, possibly around age of [age] and he was seizure free for a while but the seizure returned in the age of 15. It is episodic events with company amnesia, and he sometimes comes to a place without his consciousness. The used happens once a while, but recently once every 3-4 days. Recently he has noticed improvement coincidentally after he was given Depakote for his menta l health disorder He does not remember seeing a neurologist was specialists for his seizure, he does not remember given specially medication for seizure either Urinalysis, 03/27/2025: WBC: 0, urine leukocyte esterase: Negative WBC/HB/PLT/MCV, 03/26/2025: 17.9/17.3/374/80.6, 03/27/2025: 11.8/15.8/335/81.8 CMP, 03/27/2025: Unremarkable CT head, 03/26/2025: No acute territorial infarct, intracranial hemorrhage, or mass effect. If clinical symptoms persist, MRI may be beneficial in further evaluation. Past Medical History Cerebral palsy, autoimmune disorder, possible bipolar disorder Past Surgical History Bilateral Achilles tenderness relief, bilateral flat foot repair Family History: Anxiety disorder G8 MOTHER, Onset:30s - 40 FHx: depression G8 MOTHER, Onset:30s - 40 Family History Anxiety, depression, bipolar, ADHD Social History He was tobacco smoke, he had a heavy alcohol drinker till 02/2025. He uses marijuana Allergies: Coded Allergies: NO KNOWN ALLERGIES (Unverified , 05/29/12) Review of Systems As above, the other systems are negative Vital Signs Vital Signs Date Time Temp Pulse Resp B/P (MAP) Pulse Ox O2 Delivery O2 Flow Rate FiO2 03/30/25 05:00 98.1 89 17 140/70 (93) 99 98.1 03/29/25 20:00 Room Air* 0 21 Physical Exam GENERAL EXAM: General: the patient is well developed and nourished. No acute distress. HEENT: Normocephalic, neck is supple, no carotid bruits. No mass. RESPIRATORY: Normal respiratory effort with symmetrical lung expansion. Lungs clear to auscultation. CARDIOVASCULAR: Regular rate and rhythm with no murmurs. S1, S2. ABDOMEN: Soft, nontender, normal bowel sound NEUROLOGICAL: MENTAL STATUS: Awake and alert. Oriented to person, place, time and general circumstances. Able to give personal history SPEECH, LANGUAGE, HIGHER CORTICAL FUNCTION: no aphasia or dysathria. CRANIAL NERVES: #2: Intact visual basilio to confrontation. The optic discs were sharp. #3,4,6: Pupils are equal, round and reactive. EOMs full and conjugate. No nystagmus. #5: Facial sensation intact in all three divisions bilaterally. Mandibular strength intact. #7: Facial muscles symmetrical and strength intact. #8: Hearing grossly normal to voice. #9,10: Uvula and soft palate rise in the midline. Swallow and voice are normal. #11: Trapezius and sternomastoid strength intact bilaterally. #12: Tongue midline. No fasciculations or atrophy. SENSATION: Sensation to touch and pinprick is normal. MOTOR: Normal tone in the upper and lower extremity. Atrophy in bilateral calves. No fasciculations. No abnormal movements or posturing. Muscle strength of the major groups in the upper extremities is 5/5. Muscle strength of the major groups in the lower extremities is 5/5. REFLEXES: Deep tendon reflexes are symmetrical. No pathological reflexes. CEREBELLAR/COORDINATION: Finger to nose and heel to rai are normal bilaterally. GAIT/STATION: deferred. Labs/Diagnostic Data Labs Test 03/27/25 10:23 03/27/25 04:44 Range/Units Urine Color Yellow Yellow Urine Clarity Clear Clear Urine pH 6.0 5.0-9.0 Urine Specific [place] 1.032 1.001-1.035 Urine Protein Trace H Negative Urine Ketones Negative Negative Urine Blood Negative Negative /uL Urine Nitrite Negative Negative Urine Bilirubin Negative Negative Urine Urobilinogen Normal Negative mg/dL Urine Leukocyte Esterase Negative Negative /uL Urine RBC 2 0 - 3 /hpf Urine Microscopic WBC 1 0-3 /HPF Urine Squamous Epithelial Cells Few <5 /hpf Urine Bacteria Few H None Seen /hpf Urine Mucus Few None Seen Urine Glucose Normal Normal mg/dL White Blood Count 11.8 #H 4.4-10.8 10^3/uL Red Blood Count 5.75 4.5-5.90 10^6/uL Hemoglobin 15.8 13.5-17.5 g/dL Hematocrit 47.0 41.0-53.0 % Mean Corpuscular Volume 81.8 80.0-100.0 fL Mean Corpuscular Hemoglobin 27.5 L 28.0-32.0 pg Mean Corpuscular Hemoglobin Concent 33.7 32.0-36.0 g/dL Red Cell Distribution Width 14.5 H 11.8-14.3 % Platelet Count 335 140-450 10^3/uL Mean Platelet Volume 7.9 6.9-10.8 fL Neutrophils (%) (Auto) 57.6 37.0-80.0 % Lymphocytes (%) (Auto) 28.3 10.0-50.0 % Monocytes (%) (Auto) 11.6 0.0-12.0 % Eosinophils (%) (Auto) 2.4 0.0-7.0 % Basophils (%) (Auto) 0.1 0.0-2.0 % Neutrophils # (Auto) 6.8 1.6-8.6 10 ^3/uL Lymphocytes # (Auto) 3.3 0.4-5.4 10 ^3/uL Monocytes # (Auto) 1.4 H 0-1.3 10 ^3/uL Eosinophils # (Auto) 0.3 0-0.8 10 ^3/uL Basophils # (Auto) 0 0-0.2 10 ^3/uL Nucleated Red Blood Cells 0.1 % Sodium Level 141 136-145 mmol/L Potassium Level 3.6 3.5-5.1 mmol/L Chloride Level 105 98-107 mmol/L Carbon Dioxide Level 25 20-31 mmol/L Anion Gap 11 5-15 Blood Urea Nitrogen 18 9-23 mg/dL Creatinine 0.72 0.700-1.30 mg/dL Glomerular Filtration Rate Calc 132 >90 mL/min BUN/Creatinine Ratio 25.0 H 10.0-20.0 Serum Glucose 120 H 74-106 mg/dL Calcium Level 8.7 8.7-10.4 mg/dL Total Bilirubin 0.7 0.2-1.0 mg/dL Aspartate Amino Transferase (AST) 20 13-40 U/L Alanine Aminotransferase (ALT) 24 7-40 U/L Alkaline Phosphatase 104 46-116 U/L Total Protein 6.8 5.7-8.2 g/dL Albumin 4.0 3.2-4.8 g/dL Microbiology Date/Time Source Procedure Growth Status 03/26/25 21:30 Blood Blood Culture - Preliminary NO GROWTH AFTER 72 HOURS OF INCUBATION. Resulted Assessment Episodic event, to rule out partial complex seizure Cerebral palsy Psychiatric disorder Leukocytosis, rule out sepsis History of alcoholism Plan/Recommendation Monitoring Supportive treatment Telemetry UDS EEG MRI brain Keppra 500 mg q.a.m., 750 mg Q HS Ativan for seizure breakthrough IV antibiotics Thiamine supplementation Folic acid supplementation More recommendation per clinical course Progress: Poor This medical document was created using an electronic medical record system with [employer] computerized dictation system. Although this document has been carefully reviewed, there may still be some phonetic and typographical errors. These areas are purely typographical due to imperfections of the software programs, and do not reflect any compromise in the patient's medical care. Plan discussed with: Patient, Other DARÍO ROBERTS MD Mar 30, 2025 09:11
[2025-03-30] MEDS ORDERED: LORazepam 2MG/ML-1ML VIAL IV PRN ×2 (10:15)
[2025-03-30] MEDS: THIAMINE 100mg/ml INJ (200mg/2ml VIAL) IV ONE (12:20)
--- NOTE | 2025-03-30 13:17 | DVH ---
MRI BRAIN HEAD WO CONTRAST INDICATION: Sz EXAM DATE: 03/30/2025 10:57 AM COMPARISON: CT HEAD WITHOUT CONTRAST on DOS: 03/26/25 PROCEDURE: Using a 1.5 Radha scanner, multisequence multiplanar imaging of the brain was obtained. FINDINGS: Small area of susceptibility hypointensity in the right frontal/parietal lobe. The brain ot herwise shows normal morphology and signal characteristics. No abnormal T2 hyperintensity, diffusion restriction, is present. The ventricles are normal in size. The midline structures are intact. The ma kash intracranial flow voids are present. The aerated spaces are normal. The orbital contents and extr acranial soft tissues appear normal. IMPRESSION: Small area of susceptibility hypointensity in the right frontal/parietal lobe could be a developmenta l venous anomaly.
[2025-03-30] MEDS: FOLIC ACID 1 MG in D5W 5% 50 ML INJ ONE (14:45)
--- NOTE | 2025-03-30 15:47 | DVHPN2 ---
Subjective Patient currently denies any complaints denies any suicidal ideas or thoughts. Changes from previous H/P or p: No Changes Eyes: No Pain, No Vision change, No Conjunctivae inflammation, No Eyelid inflammation, No Other, No Redness ENT: No Ear pain, No Ear discharge, No Nose pain, No Nose discharge, No Nose congestion, No Mouth pain, No Mouth swelling, No Throat pain, No Throat swelling, No Other Cardiovascular: No Chest Pain, No Palpitations, No Orthopnea, No Paroxysmal Noc. Dyspnea, No Edema, No Lt Headedness, No Other Respiratory: No Cough, No Dry, No Shortness of breath, No SOB with excertion, No Wheezing, No Hemoptysis, No Pleuritic Pain, No Sputum, No Other Gastrointestinal: No Nausea, No Vomiting, No Abdominal Pain, No Diarrhea, No Constipation, No Melena, No Hematochezia, No Other Genitourinary: No Dysuria, No Frequency, No Incontinence, No Hematuria, No Retention, No Other Musculoskeletal: other (Lower extremity weakness); No neck pain, No shoulder pain, No arm pain, No back pain, No hand pain, No leg pain, No foot pain Skin: No Rash, No Lesions, No Jaundice, No Bruising, No Other Objective Vitals Vital Signs Date Time Temp Pulse Resp B/P (MAP) Pulse Ox O2 Delivery O2 Flow Rate FiO2 03/30/25 13:00 98.2 89 17 124/71 (88) 96 98.2 03/30/25 08:00 Room Air* 0 21 Intake/Output Intake and Output 03/30/25 07:00 Intake Total 1600 ml Output Total 810 ml Balance 790 ml Intake Oral 1600 ml Output Urine Total 810 ml Exam HEENT pupils are reactive Neck is supple CV is S1-S2 regular rate and rhythm Respiratory bilateral clear GI positive bowel sound Extremity no edema [employer] no motor deficit Medications Current Medications Medications Dose Ordered Sig/Luis Route Start Time Stop Time Status Last Admin Dose Admin Ceftriaxone Sodium 50 ml @ 100 mls/hr DAILY@09 IV 03/27/25 09:00 03/30/25 09:08 100 MLS/HR Lorazepam 0.5 mg Q8HP PRN IV 03/26/25 21:15 03/27/25 00:41 0.5 MG Clonidine HCl 0.1 mg Q4HP PRN PO 03/26/25 21:15 Metoprolol Tartrate 25 mg BID PO 03/26/25 22:00 03/30/25 09:08 25 MG Acetaminophen/ Hydrocodone Bitart 1 tab Q4HP PRN PO 03/26/25 21:15 03/30/25 06:23 1 TAB Ondansetron HCl 4 mg Q4HP PRN IV 03/26/25 21:15 Docusate Sodium 100 mg BIDPRN PRN PO 03/26/25 21:15 03/28/25 10:06 100 MG Acetaminophen 650 mg Q6HP PRN PO 03/26/25 21:15 03/27/25 00:41 650 MG Nitroglycerin 0.4 mg Q5MINP PRN SL 03/26/25 22:30 Morphine Sulfate 2 mg Q30M PRN IV 03/26/25 22:30 Divalproex Sodium 500 mg QAM PO 03/29/25 07:00 03/30/25 06:23 500 MG Divalproex Sodium 750 mg QPM PO 03/28/25 18:00 03/29/25 18:12 750 MG Lorazepam 1 mg ONCE PRN IV 03/30/25 10:15 Lorazepam 1 mg Q5MINP PRN IV 03/30/25 10:15 Folic Acid 1 mg DAILY PO 03/31/25 10:00 Thiamine HCl 100 mg DAILY PO 03/31/25 10:00 Laboratory Results Laboratory Tests 03/27/25 04:44 Urinalysis Test 03/27/25 10:23 Urine Color Yellow (Yellow) Urine Clarity Clear (Clear) Urine pH 6.0 (5.0-9.0) Urine Specific [place] 1.032 (1.001-1.035) Urine Protein Trace (Negative) H Urine Ketones Negative (Negative) Urine Blood Negative /uL (Negative) Urine Nitrite Negative (Negative) Urine Bilirubin Negative (Negative) Urine Urobilinogen Normal mg/dL (Negative) Urine Leukocyte Esterase Negative /uL (Negative) Urine RBC 2 /hpf (0 - 3) Urine Microscopic WBC 1 /HPF (0-3) Urine Squamous Epithelial Cells Few /hpf (<5) Urine Bacteria Few /hpf (None Seen) H Urine Mucus Few (None Seen) Urine Glucose Normal mg/dL (Normal) Microbiology Microbiology Date/Time Source Procedure Growth Status 03/26/25 21:30 Blood Blood Culture - Preliminary NO GROWTH AFTER 72 HOURS OF INCUBATION. Resulted Assessment/Plan Assessment/Plan 24-year-old male with known history of cerebral palsy, seizure disorder, some psychiatric disorder is here for. 1. Tonic-clonic seizures suspect episodes of psychosis with underlying complex partial seizures 2. Cerebral palsy 3. Seizure disorder suspect complex partial seizure disorder as per Psychiatry 4. Leukocytosis likely reactive 5. Chronic alcoholism -continue current dose of Depakote, patient is getting EEG today, follow up MRI brain follow up Neurology recommendation -physical therapy evaluation and treatment, discharge plan once cleared by Neurology and Psychiatry. Plan discussed with: Patient My Orders Orders - NELIDA TALBOT MD Procedure Category Date Status Time *Consult Dr. Sandi BROWN 03/29/25 Transmitted Brent 16:02 Date of Service: Mar 30, 2025 Billing Provider: NELIDA TALBOT MD Common Visit Codes: [id number] INP/OBS CARE(HIGH) NELIDA TALBOT MD Mar 30, 2025 15:47
--- NOTE | 2025-03-30 22:55 | DVHPN2 ---
Progress Note - Dictate Date Seen: Mar 31, 2025 Medical Necessity Reason Pt with a Central, PICC or Fol: No Subjective Mr. Edwards is a 22 years old right-handed gentleman with a history of cerebral palsy, bipolar disorder, autoimmune disorder, obesity, he was admitted to the [facility] on 03/26/2025 with a chief complaint of general weakness. At that time, he is alert and fully oriented, he provided the following history He was kicked out by his parents on 03/26/2025, and when he was walking towards his friend's home, he had a fall and he decided to call 911 for help. He relates he also has a history of seizure disorder His seizure started, possibly around age of [age] and he was seizure free for a while but the seizure returned in the age of 15. It is episodic events with complete amnesia, and he sometimes wakes at a place not aware how and why he comes. This used happens once a while, but recently once every 3-4 days. He has noticed improvement coincidentally after he was given Depakote for his mental health disorder He does not remember seeing a neurologist or a specialist for his seizure, he does not remember given specially medication for seizure either I have seen and examined the patient, talked to his nurse, he is doing fine, no seizure activity, no new complaints Urinalysis, 03/27/2025: WBC: 0, urine leukocyte esterase: Negative WBC/HB/PLT/MCV, 03/26/2025: 17.9/17.3/374/80.6, 03/27/2025: 11.8/15.8/335/81.8 CMP, 03/27/2025: Unremarkable EEG, 03/30/2025: Normal CT head, 03/26/2025: No acute territorial infarct, intracranial hemorrhage, or mass effect. If clinical symptoms persist, MRI may be beneficial in further evaluation MRI head, 03/30/2025: Small area of susceptibility hypointensity in the right frontal/parietal lobe could be a developmental venous anomaly vital signs Vital Sign Date Time Temp Pulse Resp B/P (MAP) Pulse Ox O2 Delivery O2 Flow Rate FiO2 03/30/25 22:24 101 126/68 03/30/25 20:00 17 93 Room Air* 0 21 03/30/25 17:00 98.0 98.0 Total Intake and Output 03/29/25 03/29/25 03/30/25 15:00 23:00 07:00 Intake Total 1600 ml Output Total 810 ml Balance 790 ml medications Current Medications Medications Dose Ordered Sig/Luis Route Start Time Stop Time Status Last Admin Dose Admin Ceftriaxone Sodium 50 ml @ 100 mls/hr DAILY@09 IV 03/27/25 09:00 03/30/25 09:08 100 MLS/HR Lorazepam 0.5 mg Q8HP PRN IV 03/26/25 21:15 03/27/25 00:41 0.5 MG Clonidine HCl 0.1 mg Q4HP PRN PO 03/26/25 21:15 Metoprolol Tartrate 25 mg BID PO 03/26/25 22:00 03/30/25 22:24 25 MG Acetaminophen/ Hydrocodone Bitart 1 tab Q4HP PRN PO 03/26/25 21:15 03/30/25 06:23 1 TAB Ondansetron HCl 4 mg Q4HP PRN IV 03/26/25 21:15 Docusate Sodium 100 mg BIDPRN PRN PO 03/26/25 21:15 03/28/25 10:06 100 MG Acetaminophen 650 mg Q6HP PRN PO 03/26/25 21:15 03/27/25 00:41 650 MG Nitroglycerin 0.4 mg Q5MINP PRN SL 03/26/25 22:30 Morphine Sulfate 2 mg Q30M PRN IV 03/26/25 22:30 Divalproex Sodium 500 mg QAM PO 03/29/25 07:00 03/30/25 06:23 500 MG Divalproex Sodium 750 mg QPM PO 03/28/25 18:00 03/30/25 17:52 750 MG Lorazepam 1 mg ONCE PRN IV 03/30/25 10:15 Lorazepam 1 mg Q5MINP PRN IV 03/30/25 10:15 Folic Acid 1 mg DAILY PO 03/31/25 10:00 Thiamine HCl 100 mg DAILY PO 03/31/25 10:00 objective General: the patient is well developed and nourished. No acute distress. MENTAL STATUS: Awake and alert. Oriented to person, place, time and general circumstances. Able to give personal history SPEECH, LANGUAGE, HIGHER CORTICAL FUNCTION: no aphasia or dysathria. CRANIAL NERVES: Pupils are equal, round and reactive. EOMs full and conjugate. No nystagmus. Facial sensation intact in all three divisions bilaterally. Mandibular strength intact. Facial muscles symmetrical and strength intact. Tongue midline. No fasciculations or atrophy. SENSATION: Sensation to touch and pinprick is normal. MOTOR: Normal tone in the upper and lower extremity. Atrophy in bilateral calves. No fasciculations. No abnormal movements or posturing. Muscle strength of the major groups in the CEREBELLAR/COORDINATION: Finger to nose and heel to rai are normal bilaterally. GAIT/STATION: deferred laboratory and microbiology Laboratory Tests 03/27/25 04:44 Test 03/27/25 04:44 Range/Units Serum Glucose 120 H 74-106 mg/dL Problem List Episodic event, to rule out partial complex seizure Cerebral palsy Psychiatric disorder Leukocytosis, rule out sepsis History of alcoholism Assessment/Plan Monitoring Supportive treatment Telemetry UDS Keppra 500 mg q.a.m., 750 mg Q HS Ativan for seizure breakthrough IV antibiotics Thiamine supplementation Folic acid supplementation More recommendation per clinical course This medical document was created using an electronic medical record system with [employer] dictation system. Although this document has been carefully reviewed, there may still be some phonetic and typographical errors. These areas are purely typographical due to imperfections of the software programs, and do not reflect any compromise in the patient's medical care. Prognosis poor Dietary Evaluation Review Recommendations by RD: Dietary education by RD Comments: 1) Continue cardiac diet 2) Refer to outpatient RD for weight management 3) Follow-up with neurology and psychiatry 4) Continue to monitor I&O, labs, and skin integrity Expected Outcomes/Goals: 1) appetite and labs to improve 2) gradual wt loss 3) f/u in 3-5 days Plan discussed with: Patient, Other DARÍO ROBERTS MD Mar 30, 2025 22:55
--- NOTE | 2025-03-30 23:40 | DVHEEG2 ---
Neurology EEG Procedural Note Procedural Note EXAM DATE: 03/30/2025 REFERRING DOCTOR: Dr. Roberts TECHNIQUE: Eighteen channels of EEG, 2 channels of EOG, and 1 channel of EKG were recorded using the [employer] 10/20 system. CLINICAL DATA: The patient was referred for an EEG evaluation for the evidence of seizure disorder. MEDICATIONS: See the chart BACKGROUND ACTIVITY: While the patient was awake, the background activity consisted of well regulated 11 Hz rhythmic waveforms, symmetrically distributed over both posterior quadrants and was reactive to eye opening. ACTIVATION: Hyperventilation: Not done Photic Stimulation: No photic convulsive response Sleep: Not seen IMPRESSION: This is a normal EEG. No focal, lateralized, or epileptiform features are noted. If clinically indicated to rule out a seizure disorder, recommend repeat EEG with sleep deprivation. The EKG channel showed a regular heart rate of 90/min[place] [address] DARÍO ROBERTS MD Mar 30, 2025 23:40
[2025-03-31] VITALS (8 sets, daily range): BP systolic 120–164; BP diastolic 56–92; PULSE 75–106; RESP 15–18; TEMP 97–98.4; O2SAT 94–99
[2025-03-31] MEDS: FOLIC ACID 1 MG TAB PO SCH (09:40)
[2025-03-31] MEDS: THIAMINE HCL 100 MG TAB PO SCH (09:40)
[2025-03-31] MEDS ORDERED: DIVA-92 PO (13:06)
[2025-03-31] MEDS ORDERED: DIVA-93 PO (13:06)
--- NOTE | 2025-03-31 13:15 | DVHDS2 ---
Discharge Summary Date of Admission Mar 26, 2025 at 22:29 Date of Discharge: Mar 31, 2025 Admitting Diagnosis Generalized weakness Personally disorder Labs/Diagnostic Data: Laboratory Results Test 03/27/25 10:23 03/27/25 04:44 Urine Color Yellow (Yellow) Urine Clarity Clear (Clear) Urine pH 6.0 (5.0-9.0) Urine Specific [place] 1.032 (1.001-1.035) Urine Protein Trace (Negative) Urine Ketones Negative (Negative) Urine Blood Negative /uL (Negative) Urine Nitrite Negative (Negative) Urine Bilirubin Negative (Negative) Urine Urobilinogen Normal mg/dL (Negative) Urine Leukocyte Esterase Negative /uL (Negative) Urine RBC 2 /hpf (0 - 3) Urine Microscopic WBC 1 /HPF (0-3) Urine Squamous Epithelial Cells Few /hpf (<5) Urine Bacteria Few /hpf (None Seen) Urine Mucus Few (None Seen) Urine Glucose Normal mg/dL (Normal) White Blood Count 11.8 10^3/uL (4.4-10.8) Red Blood Count 5.75 10^6/uL (4.5-5.90) Hemoglobin 15.8 g/dL (13.5-17.5) Hematocrit 47.0 % (41.0-53.0) Mean Corpuscular Volume 81.8 fL (80.0-100.0) Mean Corpuscular Hemoglobin 27.5 pg (28.0-32.0) Mean Corpuscular Hemoglobin Concent 33.7 g/dL (32.0-36.0) Red Cell Distribution Width 14.5 % (11.8-14.3) Platelet Count 335 10^3/uL (140-450) Mean Platelet Volume 7.9 fL (6.9-10.8) Neutrophils (%) (Auto) 57.6 % (37.0-80.0) Lymphocytes (%) (Auto) 28.3 % (10.0-50.0) Monocytes (%) (Auto) 11.6 % (0.0-12.0) Eosinophils (%) (Auto) 2.4 % (0.0-7.0) Basophils (%) (Auto) 0.1 % (0.0-2.0) Neutrophils # (Auto) 6.8 10 ^3/uL (1.6-8.6) Lymphocytes # (Auto) 3.3 10 ^3/uL (0.4-5.4) Monocytes # (Auto) 1.4 10 ^3/uL (0-1.3) Eosinophils # (Auto) 0.3 10 ^3/uL (0-0.8) Basophils # (Auto) 0 10 ^3/uL (0-0.2) Nucleated Red Blood Cells 0.1 % Sodium Level 141 mmol/L (136-145) Potassium Level 3.6 mmol/L (3.5-5.1) Chloride Level 105 mmol/L (98-107) Carbon Dioxide Level 25 mmol/L (20-31) Anion Gap 11 (5-15) Blood Urea Nitrogen 18 mg/dL (9-23) Creatinine 0.72 mg/dL (0.700-1.30) Glomerular Filtration Rate Calc 132 mL/min (>90) BUN/Creatinine Ratio 25.0 (10.0-20.0) Serum Glucose 120 mg/dL (74-106) Calcium Level 8.7 mg/dL (8.7-10.4) Total Bilirubin 0.7 mg/dL (0.2-1.0) Aspartate Amino Transferase (AST) 20 U/L (13-40) Alanine Aminotransferase (ALT) 24 U/L (7-40) Alkaline Phosphatase 104 U/L (46-116) Total Protein 6.8 g/dL (5.7-8.2) Albumin 4.0 g/dL (3.2-4.8) Other Laboratory Tests 03/27/25 04:44 Brief Hx & Hospital Course: History of Present Illness The patient is a 24-year-old male with past medical history of autoimmune disorder, cerebral palsy, and seizure who presented to [facility] ED with complaint of generalized weakness. Patient reports that he had an argument with his family at home, leaving his house and calling 911 for assistance. Patient states that he was found to be generally weak, but this could also be due to his history of cerebral palsy. Patient requesting for licensed social worker for assistance as he claims no one at home takes care of him. Patient was seen and evaluated in the ED, laboratory data shows WBC 17.9, platelets 274, sodium 140, potassium 3.6, BUN 20, creatinine 0.78, GFR 129, glucose 91, calcium 9.3, blood pressure 163/78, heart rate 125, temperature 95 F, O2 saturation 94% on room air. Head CT showed no acute territorial infarct, intracranial hemorrhage, or mass effect. Please see medication orders section in the computer. On my assessment, patient denied chest pain, no headache, dizziness, diaphoresis, shortness of breaths, no abdominal pain, diarrhea, nausea, vomiting, fever, chills. Patient was admitted further evaluation and medical management. Course of hospitalization: Patient was started on empiric antibiotic therapy, gentle IV hydration, thiamine. Neurology consultation was obtained. Patient was found to have normal EEG. No seizure activity was found to be in the hospital. Patient also had psychiatry consultation with recommendations reviewed. Patient was started on Depakote while in the hospital. While the patient did report having suicidal ideation with a psychiatrist, recommendations were to start treatment with Depakote two quell any seizure activity as well as treatment for major depressive disorder. Patient was assessed today and denies having any suicidal ideation or thoughts of hurting himself. Patient states that he does feel better, not as depressed. Patient states that he does not want to move back in with his father Estuardo as noted with the initial social studies department chair evaluation. Patient states that he was flu with a sister. Given that patient no longer has suicidal ideation or thoughts of hurting himself, patient can be discharged from medical standpoint. Order has been placed for disability case manager to establishing outpatient psychiatric appointment with [facility] contracted psychiatrist as well as neurologist prior to being discharged in the hospital. Patient will be continued on Depakote 750 mg q.p.m. and 500 mg in a.m. as he is receiving in the hospital. As recommended by Dr. Pugh, psychiatry, patient can have his Depakote trough as an outpatient, in when levels have been found to be therapeutic, initiation of Lexapro as an outpatient can be added to the patient's psychiatric regimen. He is instructed to stop drinking and using illicit drugs. Long discussion was made with the patient's nurse as well as far as discharge planning. Given patient has no PCP, patient will follow up with the discharge Clinic in one week. Physical examination General: Alert and Oriented x3. No acute distress. Well-nourished. Obese Eyes: EOMI. Anicteric. HENT: Moist mucous membranes. Lungs: Clear to auscultation bilaterally. No accessory muscle use. Cardiovascular: Regular rate and rhythm. No murmur. No JVD. Abdomen: Soft, non-tender and non-distended. No palpable masses. Extremities: No edema. Non-tender. Skin: No rashes or lesions. Warm. Neurologic: No focal neurological deficits. CN II-XII grossly intact, but not individually tested. Psychiatric: Cooperative. Appropriate mood and affect. Total time spent with patient discussing and formulating plan of care: 35 minutes. This medical document was created using an electronic medical record system with [employer] dictation system. Although this document has been carefully reviewed, there may still be some phonetic and typographical errors. These areas are purely typographical due to imperfections of the software programs, and do not reflect any compromise in the patient's medical care. Consults/Reason for consult Neurology: Breakthrough seizures Psychiatry: Major depressive disorder Condition at Discharge: Guarded Final Diagnosis/Problems List Breakthrough seizures Metabolic encephalopathy Major depressive disorder Polysubstance abuse Cerebral palsy Leukocytosis, sepsis ruled out Metabolic encephalopathy Discharge Disposition: Home Discharge Instruct/Medications Diet: Regular Activity: No Restrictions, As Tolerated Follow Up/Referral: Follow up with Psychiatry at earliest appointment available Follow up with Neurology in 1-2 weeks Follow up with the discharge Clinic in 1-2 weeks Medications: Stop Seroquel Depakote extended release 750 mg p.o. q.p.m. Depakote extended release 500 mg p.o. q.a.m. Scheduled Divalproex Sodium (Depakote Er), 500 MG PO QAM Divalproex Sodium (Depakote Er), 750 MG PO QPM 36 Discharge Statement: "Patient was advised to return to the ER or call 911 if any headaches, dizziness, shortness of breath, chest pain, abdominal pain, bleeding, fevers, or worsening of medical condition. Patient was counseled about treatment plan, medications, possible side effects, patientverbalized understanding. All questions were answered to the best of my ability. This discharge took greater then 30 minutes in planning, reviewing documentation, counseling the patient, and discussing with other team members." ASSESSMENT ASSESSMENT Assessment Breakthrough seizures Metabolic encephalopathy Major depressive disorder Date of Service: Mar 31, 2025 Billing Provider: JERO MCMAHON NP Common Visit Codes: [id number] DISCH DAY >30min JERO MCMAHON NP Mar 31, 2025 13:14
== END 2025-03-31 21:20 | disposition home or self-care (01) | DRG 101 ==
LOC: EDBD 12:46 → ER 12:50 → OVERFLOW 22:29 → WEST WING 03-27 15:35 → CENTRAL 03-30 19:40
PROVIDERS: ADMIT Nurse Practitioner Acute Care; ATTEND Nurse Practitioner Acute Care
DX: G40.909 Epilepsy, unspecified, not intractable, without status epilepticus (principal); R45.851 Suicidal ideations; R65.10 Systemic inflammatory response syndrome (SIRS) of non-infectious origin without acute organ dysfunction; G80.9 Cerebral palsy, unspecified; F60.9 Personality disorder, unspecified; E66.9 Obesity, unspecified; G40.209 Localization-related (focal) (partial) symptomatic epilepsy and epileptic syndromes with complex partial seizures, not intractable, without status epilepticus; F10.20 Alcohol dependence, uncomplicated; F31.9 Bipolar disorder, unspecified; Z68.33 Body mass index [BMI] 33.0-33.9, adult; Z79.899 Other long term (current) drug therapy; Z81.8 Family history of other mental and behavioral disorders; Z86.61 Personal history of infections of the central nervous system
CPT/HCPCS: 36415; 70450; 70551; 80048; 80053; 81001; 85025; 87040; 95819; 96360; G0378; J7060